=== PATIENT | female | born 1995 | race Caucasian/White ===

== ENCOUNTER → 2020-03-31 | Outpatient (CLI) | payer BC ==
--- NOTE | 2020-03-31 08:35 | US ---
EXAMINATION TYPE: US abdomen complete DATE OF EXAM: 03/31/2020 COMPARISON: NONE CLINICAL HISTORY: R10.11 ABD PAIN RUQ. [place] stool for 1-2 months. Nausea. EXAM MEASUREMENTS: Liver Length: 14.6 cm Gallbladder Wall: 0.3 cm CBD: 0.4 cm Spleen: 10.6 cm Right Kidney: 11.0 x 4.2 x 4.6 cm Left Kidney: 10.4 x 4.7 x 4.0 cm *Technical limitations due to large amount of overlying bowel content Pancreas: Obscured by bowel gas Liver: appears wnl Gallbladder: no evidence of stones Evidence for sonographic Deal's sign: no CBD: wnl Spleen: wnl Right Kidney: no evidence of hydronephrosis or mass Left Kidney: no evidence of hydronephrosis or mass Upper IVC: wnl Abd Aorta: wnl The liver is homogenous. The intrahepatic portion of the IVC and proximal abdominal aorta are within normal limits. There is no evidence of cholelithiasis. Common bile duct is unremarkable. Pancreas limited by bowel gas. The spleen is unremarkable. Kidneys are symmetric and free of hydronephrosis. No renal lesions are seen. IMPRESSION: 1. No acute process.
== END | disposition home or self-care (01) ==
LOC: RADUSWWP 07:56
PROVIDERS: ATTEND Internal Medicine
DX: R10.11 Right upper quadrant pain (principal)
CPT/HCPCS: 76700

== ENCOUNTER → 2022-01-04 | Outpatient (CLI) | payer BC ==
--- NOTE | 2022-01-05 18:40 | CT ---
EXAM: CT Head Without Intravenous Contrast CLINICAL HISTORY: ITS.REASON CT Reason: R42 dizziness TECHNIQUE: Axial computed tomography images of the head/brain without intravenous contrast. CTDI is 59.43 mGy and DLP is 1209.38 mGy-cm. This CT exam was performed using one or more of the following dose reduction techniques: automated exposure control, adjustment of the mA and/or kV according to patient size, and/or use of iterative reconstruction technique. COMPARISON: None FINDINGS: Brain: No acute infarct or hemorrhage. No extra-axial fluid collection. No mass effect or midline shift. Ventricles and sulci: Normal. No ventriculomegaly or intraventricular hemorrhage. Bones: Normal. No bony lesion or acute fracture. Subcutaneous tissues: Normal. Sinuses: Small polyp versus mucous retention cyst in the right maxillary sinus. Mastoid air cells: Normal. Orbits: Grossly unremarkable. IMPRESSION: No acute intracranial abnormality.
== END | disposition home or self-care (01) ==
LOC: RADCTMAIN 13:14
PROVIDERS: ATTEND Family Medicine
DX: R42 Dizziness and giddiness (principal)
CPT/HCPCS: 70450

== ENCOUNTER → 2022-01-04 | Outpatient (CLI) | payer BC ==
[2022-01-05 06:32] LABS: Creatine Kinase MB <0.2 ng/mL (0.0-2.4); Troponin I <0.012 ng/mL (0.000-0.034)
== END | disposition home or self-care (01) ==
LOC: LABWHC1 21:03
PROVIDERS: ATTEND Nurse Practitioner Adult Health
DX: R94.31 Abnormal electrocardiogram [ECG] [EKG] (principal)
CPT/HCPCS: 36415; 82553; 84484; 85379; 85652; 86140

== ENCOUNTER 2022-01-06 03:56 | Emergency (ER) | payer BC ==
[2022-01-06 04:08] VITALS: BP 125/83; PULSE 110; RESP 20; TEMP 98.2
--- NOTE | 2022-01-06 04:18 | ED ---
Recheck HPI - General Chief Complaint: Recheck/Abnormal Lab/Rx Stated Complaint: dizziness, pain everywhere Time Seen by Provider: 01/06/22 04:16 Source: patient, RN notes reviewed, old records reviewed Mode of arrival: ambulatory Limitations: no limitations - History of Present Illness Initial Comments: This is a 26-year-old female DF for evaluation. Patient Dese for evaluation regarding anxiety bodyaches and pains recently on his long steroid taper for treatment of vertigo. Patient has had vertigo in the past and vertigo is from persistent now for 2-3 weeks. No headaches. She was also been treated for an ear infection., Antibiotics Complaint: other (Persistent vertiginous symptoms) -: week(s) Returns Today for: persistent/worsening pain related to initial visit (Current bodyaches and pains) Symptoms Since Prior Visit: worsening pain Associated Symptoms: none Treatments Prior to Arrival: Given Antibiotics on, other (Patient is been on steroids for 2 weeks with Taper) - Related Data Previous Rx's Medication Instructions Recorded Meclizine [Antivert] 25 mg PO TID #15 tab 01/06/22 Ondansetron Odt [Zofran ODT] 4 mg PO Q8HR PRN #10 tab 01/06/22 Allergies Allergy/AdvReac Type Severity Reaction Status Date / Time shellfish derived [Shellfish] Allergy Wheezing Verified 01/06/22 04:08 Review of Systems ROS Statement: Those systems with pertinent positive or pertinent negative responses have been documented in the HPI. ROS Other: All systems not noted in ROS Statement are negative. Past Medical History Past Medical History: No Reported History History of Any Multi-Drug Resistant Organisms: None Reported Past Surgical History: No Surgical Hx Reported Past Psychological History: No Psychological Hx Reported Smoking Status: Never smoker Past Alcohol Use History: None Reported Past Drug Use History: None Reported General Exam Limitations: no limitations General appearance: alert, in no apparent distress, anxious Head exam: Present: atraumatic, normocephalic, normal inspection Eye exam: Present: normal appearance, PERRL, EOMI. Absent: scleral icterus, conjunctival injection, periorbital swelling ENT exam: Present: normal exam, mucous membranes moist Neck exam: Present: normal inspection. Absent: tenderness, meningismus, lymphadenopathy Respiratory exam: Present: normal lung sounds bilaterally. Absent: respiratory distress, wheezes, rales, rhonchi, stridor Cardiovascular Exam: Present: normal rhythm, tachycardia, normal heart sounds. Absent: systolic murmur, diastolic murmur, rubs, gallop, clicks GI/Abdominal exam: Present: soft, normal bowel sounds. Absent: distended, tenderness, guarding, rebound, rigid Extremities exam: Present: normal inspection, full ROM, normal capillary refill. Absent: tenderness, pedal edema, joint swelling, calf tenderness Back exam: Present: normal inspection Neurological exam: Present: alert, oriented X3, CN II-XII intact Psychiatric exam: Present: normal affect, normal mood Skin exam: Present: warm, dry, intact, normal color. Absent: rash Course Vital Signs 01/06/22 04:05 Temperature 98.2 F Pulse Rate 110 H Respiratory 20 Rate Blood Pressure 125/83 O2 Sat by Pulse 97 Oximetry - Reevaluation(s) Reevaluation #1: 01/06/22 04:58 Record is reviewed Reevaluation #2: 01/06/22 04:58 Patient symptoms improved Reevaluation #3: 01/06/22 04:58 Patient informed of results and plans and questions answered Medical Decision Making - Medical Decision Making 46 female presents today for evaluation of persistent vertiginous symptoms. Going on like 2 weeks difficulty sleeping and now bodyaches and pains. Patient will be given symptomatic therapy. Follow-up with ENT Disposition Clinical Impression: BPPV (benign paroxysmal positional vertigo), Vertigo Disposition: HOME SELF-CARE Condition: Good Prescriptions: Meclizine [Antivert] 25 mg PO TID #15 tab Ondansetron Odt [Zofran ODT] 4 mg PO Q8HR PRN #10 tab PRN Reason: nausea/vomiting Is patient prescribed a controlled substance at d/c from ED?: No Referrals: Sarah Cadet NPC [Primary Care Provider] - 1-2 days Ronan Cooper MD [STAFF PHYSICIAN] - 1-2 days Jack Yoo DO [Doctor of Osteopathic Medicine] - 1-2 days Time of Disposition: 05:00
[2022-01-06] MEDS ORDERED: ONDANSETRON ODT 4 MG TAB PO STA (04:55)
[2022-01-06] MEDS ORDERED: KETOROLAC 15 MG/ML 1 ML VIAL IM STA (04:55)
[2022-01-06] MEDS ORDERED: MECLIZINE 12.5 MG TAB PO STA (04:55)
== END 2022-01-06 05:15 | disposition home or self-care (01) ==
LOC: SUPCPDRO 03:56 → EC 03:56
DX: H81.10 Benign paroxysmal vertigo, unspecified ear (principal); Z91.013 Allergy to seafood
CPT/HCPCS: 99283; 96372; J1885

== ENCOUNTER → 2022-02-02 | Outpatient (CLI) | payer BC ==
--- NOTE | 2022-02-02 15:36 | MR ---
EXAMINATION TYPE: MR brain and iac wo/w con DATE OF EXAM: 02/02/2022 COMPARISON: CT brain January 04, 2022. HISTORY: Benign paroxysmal vertigo TECHNIQUE: Multiplanar, multisequence images of the brain and brainstem is performed without and with IV contras t, utilizing 11 mL intravenous Gadavist . Acoustic nerve disorder protocol. FINDINGS: Diffusion weighted images demonstrate no evidence of a recent infarct or other diffusion ab normality. There is no extra-axial fluid collection or significant white matter signal abnormality. The ventricular system and cisternal spaces are normal in size and appearance. The brain volume is age appropriate. Midline structures demonstrate normal morphology. The craniocervical junction appears within normal limits. Post contrast images demonstrate no abnormal enhancement. The dural venous sinuses appear pa tent. The visualized sinuses are clear and the globes are intact. Some patchy increased fluid signal in the inferior left petrous apex is present. The vestibulocochlea r complexes are symmetric and felt within normal limits. There is no suspicious enhancing cerebellopo ntine angle mass identified bilaterally. IMPRESSION: Possible mild left-sided petrous apicitis otherwise unremarkable study.
== END | disposition home or self-care (01) ==
LOC: RADMRIMAIN 07:08
PROVIDERS: ATTEND Family Medicine
DX: H81.13 Benign paroxysmal vertigo, bilateral (principal)
CPT/HCPCS: 70553; A9585

== ENCOUNTER 2022-08-20 08:00 | Emergency (ER) | payer BC ==
[2022-08-20 08:06] VITALS: TEMP 98
--- NOTE | 2022-08-20 08:33 | ED ---
General Adult HPI - General Chief complaint: Shortness of Breath Stated complaint: L side pain Time Seen by Provider: 08/20/22 08:07 Source: patient Mode of arrival: ambulatory Limitations: no limitations - History of Present Illness Initial comments: Dictation was produced using [employer] dictation software. please excuse any grammatical, word or spelling errors. Chief Complaint: 26-year-old female presents emergency Department with left- sided pleuritic chest pain History of Present Illness: 26-year-old female presents emergency Department with 2 days of left-sided pleuritic chest pain. She states that should she feel short of breath. No history of blood clots. No calf pain or calf tenderness. Patient does not take any oral contraceptive pills. No recent travel or long car rides. Patient denies any medical problems. She did recover from a mild cold recently. She is had very light coughing. Patient is reproduced with deep inspiration. Not reproduced with truncal rotation. No nausea vomiting. She reports that the pain feels like it's under her left lower ribs The ROS documented in this emergency department record has been reviewed and confirmed by me. Those systems with pertinent positive or negative responses have been documented in the HPI. All other systems are other negative and/or noncontributory. - Related Data Previous Rx's Medication Instructions Recorded Meclizine [Antivert] 25 mg PO TID #15 tab 01/06/22 Ondansetron Odt [Zofran ODT] 4 mg PO Q8HR PRN #10 tab 01/06/22 Allergies Allergy/AdvReac Type Severity Reaction Status Date / Time shellfish derived [Shellfish] Allergy Wheezing Verified 08/20/22 08:06 Review of Systems ROS Statement: Those systems with pertinent positive or pertinent negative responses have been documented in the HPI. ROS Other: All systems not noted in ROS Statement are negative. Past Medical History Past Medical History: No Reported History History of Any Multi-Drug Resistant Organisms: None Reported Past Surgical History: No Surgical Hx Reported Past Psychological History: No Psychological Hx Reported Smoking Status: Never smoker Past Alcohol Use History: None Reported Past Drug Use History: None Reported General Exam - General Exam Comments Initial Comments: PHYSICAL EXAM: General Impression: Alert and oriented x3, not in acute distress HEENT: Normocephalic atraumatic, extra-ocular movements intact, pupils equal and reactive to light bilaterally, mucous membranes moist. Cardiovascular: Heart regular rate and rhythm Chest: Able to complete full sentences, no retractions, no tachypnea Abdomen: abdomen soft, non-tender, non-distended, no organomegaly Musculoskeletal: Pulses present and equal in all extremities, no peripheral edema Motor: no focal deficits noted Neurological: CN II-XII grossly intact, no focal motor or sensory deficits noted Skin: Intact with no visualized rashes Psych: Normal affect and mood Limitations: no limitations Course Vital Signs 08/20/22 08:03 Temperature 98 F Pulse Rate 100 Respiratory 18 Rate Blood Pressure 130/72 O2 Sat by Pulse 100 Oximetry EKG Findings - EKG Comments: EKG Findings:: My EKG interpretation: Ventricular rate 91, sinus rhythm,. Interval 150, QRS 11, QTC 394. No IN prolongation, no QTC prolongation, no ST or T-wave changes noted. Overall, this EKG is unremarkable Medical Decision Making - Medical Decision Making Was pt. sent in by a medical professional or institution (, PA, BIOINFORMATICS SUPPORT SPECIALIST, urgent care, hospital, or [facility]...) When possible be specific @ -No Did you speak to anyone other than the patient for history (EMS, parent, family, police, friend...)? What history was obtained from this source @ -No Did you review nursing and triage notes (agree or disagree)? Why? @ -I reviewed and agree with nursing and triage notes Were old charts reviewed (outside hosp., previous admission, EMS record, old EKG, old radiological studies, urgent care reports/EKG's, [facility] records)? Report findings @ -No old charts were reviewed Differential Diagnosis (chest pain, altered mental status, abdominal pain women, abdominal pain men, vaginal bleeding, musculoskeletal, weakness, fever, dyspnea, syncope, headache, dizziness, GI bleed, back pain, seizure, CVA, palpatations, mental health)? @ -Differential Chest Pain: Stable Angina, Unstable Angina, STEMI, NSTEMI Aortic Dissection, Pneumothorax, Musculoskeletal, Esophageal Spasm GERD, Cholecystitis, Pancreatitis, Zoster, this is not meant to be an all-inclusive list. EKG interpreted by me (3pts min.). @ -As above X-rays interpreted by me (1pt min.). @ -Nonacute CT interpreted by me (1pt min.). @ -None done U/S interpreted by me (1pt. min.). @ -None done What testing was considered but not performed or refused? (CT, X-rays, U/S, labs)? Why? @ -None What meds were considered but not given or refused? Why? @ -None Did you discuss the management of the patient with other professionals (professionals i.e. , PA, BIOINFORMATICS SUPPORT SPECIALIST, lab, RT, psych nurse, transition social worker, forensic materials engineer, teacher, sustainability officer, hospice case manager)? Give summary @ -No Was smoking cessation discussed for >3mins.? @ -No Was critical care preformed (if so, how long)? @ -No Were there social determinants of health that impacted care today? How? (Ho melessness, low income, unemployed, alcoholism, drug addiction, transportation, low edu. Level, literacy, decrease access to med. care, [facility], rehab)? @ -No Was there de-escalation of care discussed even if they declined (Discuss DNR or withdrawal of care, Hospice)? DNR status @ -No What co-morbidities impacted this encounter? (DM, HTN, Smoking, COPD, CAD, Cancer, CVA, ARF, Chemo, Hep., AIDS, mental health diagnosis, sleep apnea, morbid obesity)? @ -None Was patient admitted / discharged? Hospital course, mention meds given and route, prescriptions, significant lab abnormalities, going to OR and other pertinent info. @ -26 Year-old female presents with acute pleurisy. The fracture includes pulmonary embolism. Patient S1 every 3 T3 pattern or EKG. D-dimer is unremarkable. Rest of labs are negative. Patient reevaluated at bedside fungus stable condition. She'll be discharged advised follow-up with primary doctor. Undiagnosed new problem with uncertain prognosis? @ -No Drug Therapy requiring intensive monitoring for toxicity (Heparin, Nitro, Insulin, Cardizem)? @ -No Were any procedures done? @ -No Diagnosis/symptom? Acute, or Chronic, or Acute on Chronic? Uncomplicated (without systemic symptoms) or Complicated (systemic symptoms)? @ -1.Acute pleurisy, no high-risk features Side effects of treatment? @ -No Exacerbation, Progression, or Severe Exacerbation? @ -No Poses a threat to life or bodily function? How? (Chest pain, [place], [place], pneumonia, PE, COPD, DKA, ARF, appy, cholecystitis, CVA, Diverticulitis, Homicidal, Suicidal, threat to staff... and all critical care pts) @ -No - Lab Data Result diagrams: 08/20/22 08:44 08/20/22 08:44 Lab Results 08/20/22 08/20/22 08/20/22 Range/Units 08:44 08:44 08:44 WBC 10.1 (3.8-10.6) k/uL RBC 4.36 (3.80-5.40) m/uL Hgb 13.0 (11.4-16.0) gm/dL Hct 38.5 (34.0-46.0) % MCV 88.3 (80.0-100.0) fL MCH 29.8 (25.0-35.0) pg MCHC 33.8 (31.0-37.0) g/dL RDW 14.3 (11.5-15.5) % Plt Count 318 (150-450) k/uL MPV 7.3 Neutrophils % 68 % Lymphocytes % 21 % Monocytes % 6 % Eosinophils % 2 % Basophils % 1 % Neutrophils # 6.9 (1.3-7.7) k/uL Lymphocytes # 2.2 (1.0-4.8) k/uL Monocytes # 0.6 (0-1.0) k/uL Eosinophils # 0.2 (0-0.7) k/uL Basophils # 0.1 (0-0.2) k/uL PT 9.6 (9.0-12.0) sec INR 0.9 (<1.2) APTT 25.2 (22.0-30.0) sec D-Dimer 0.48 (<0.60) mg/L FEU Sodium 137 (137-145) mmol/L Potassium 4.1 (3.5-5.1) mmol/L Chloride 103 (98-107) mmol/L Carbon Dioxide 26 (22-30) mmol/L Anion Gap 8 mmol/L BUN 12 (7-17) mg/dL Creatinine 0.69 (0.52-1.04) mg/dL Est GFR (CKD-EPI)AfAm >90 (>60 ml/min/1.73 sqM) Est GFR (CKD-EPI)NonAf >90 (>60 ml/min/1.73 sqM) Glucose 91 (74-99) mg/dL Calcium 9.1 (8.4-10.2) mg/dL Troponin I (0.000-0.034) ng/mL 08/20/22 Range/Units 08:44 WBC (3.8-10.6) k/uL RBC (3.80-5.40) m/uL Hgb (11.4-16.0) gm/dL Hct (34.0-46.0) % MCV (80.0-100.0) fL MCH (25.0-35.0) pg MCHC (31.0-37.0) g/dL RDW (11.5-15.5) % Plt Count (150-450) k/uL MPV Neutrophils % % Lymphocytes % % Monocytes % % Eosinophils % % Basophils % % Neutrophils # (1.3-7.7) k/uL Lymphocytes # (1.0-4.8) k/uL Monocytes # (0-1.0) k/uL Eosinophils # (0-0.7) k/uL Basophils # (0-0.2) k/uL PT (9.0-12.0) sec INR (<1.2) APTT (22.0-30.0) sec D-Dimer (<0.60) mg/L FEU Sodium (137-145) mmol/L Potassium (3.5-5.1) mmol/L Chloride (98-107) mmol/L Carbon Dioxide (22-30) mmol/L Anion Gap mmol/L BUN (7-17) mg/dL Creatinine (0.52-1.04) mg/dL Est GFR (CKD-EPI)AfAm (>60 ml/min/1.73 sqM) Est GFR (CKD-EPI)NonAf (>60 ml/min/1.73 sqM) Glucose (74-99) mg/dL Calcium (8.4-10.2) mg/dL Troponin I <0.012 (0.000-0.034) ng/mL Disposition Clinical Impression: Pleurisy Disposition: HOME SELF-CARE Condition: Good Instructions (If sedation given, give patient instructions): Pleurisy (ED) Is patient prescribed a controlled substance at d/c from ED?: No Referrals: Eduardo Allan MD [Primary Care Provider] - 1-2 days Time of Disposition: 09:44
[2022-08-20 08:53] LABS: Basophils # (A) 0.1 k/uL (0-0.2); Basophils % (A) 1 %; Eosinophils # (A) 0.2 k/uL (0-0.7); Eosinophils % (A) 2 %; HCT 38.5 % (34.0-46.0); Lymphocytes # (A) 2.2 k/uL (1.0-4.8); Lymphocytes % (A) 21 %; MCH 29.8 pg (25.0-35.0); MCHC 33.8 g/dL (31.0-37.0); MCV 88.3 fL (80.0-100.0); Mean Platelet Volume 7.3; Monocytes # (A) 0.6 k/uL (0-1.0); Monocytes % (A) 6 %; Neutrophils # (A) 6.9 k/uL (1.3-7.7); Neutrophils % (A) 68 %; Platelet Count 318 k/uL (150-450); RBC 4.36 m/uL (3.80-5.40); RDW 14.3 % (11.5-15.5); WBC 10.1 k/uL (3.8-10.6)
--- NOTE | 2022-08-20 08:59 | XR ---
EXAMINATION TYPE: XR chest 2V DATE OF EXAM: 08/20/2022 COMPARISON: NONE HISTORY: Chest pain TECHNIQUE: Frontal and lateral views of the chest are obtained. FINDINGS: There is no focal air space opacity. No evidence for pneumothorax. No pleural effusion. The cardiac silhouette size is within normal limits. The osseous structures are grossly intact. IMPRESSION: 1. No acute cardiopulmonary process.
[2022-08-20 09:08] LABS: African American GFR (CKD) >90 (>60 ml/min/1.73 sqM); Anion Gap 8 mmol/L; Blood Urea Nitrogen 12 mg/dL (7-17); Calcium 9.1 mg/dL (8.4-10.2); Carbon Dioxide 26 mmol/L (22-30); Chloride 103 mmol/L (98-107); Glucose 91 mg/dL (74-99); INR 0.9 (<1.2); Non-African American GFR(CKD) >90 (>60 ml/min/1.73 sqM); Partial Thromboplastin Time 25.2 sec (22.0-30.0); Potassium 4.1 mmol/L (3.5-5.1); Prothrombin Time 9.6 sec (9.0-12.0); Sodium 137 mmol/L (137-145)
[2022-08-20 10:38] VITALS: BP 121/75; PULSE 88; RESP 20
== END 2022-08-20 10:38 | disposition home or self-care (01) ==
LOC: EC 08:00
DX: R09.1 Pleurisy (principal); Z91.013 Allergy to seafood
CPT/HCPCS: 36415; 71046; 80048; 84484; 85025; 85379; 85610; 85730; 93005; 99285

== ENCOUNTER 2023-02-20 08:04 | Day surgery (SDC) | payer BC ==
[2023-02-15 16:01] VITALS: BMI 40.7
[~2023-02-20 08:04] MED LIST: ACETAMINOPHEN TAB 500 MG TAB PO PRN; HEPARIN SODIUM,PORCINE/PF 5,000 UNIT/0.5 ML SYRINGE SQ PRN; Pre Op ABX Message 1 EACH MISC MISCELLANE ONE
[2023-02-20] MEDS ORDERED: HYDROmorphone 0.5 MG/0.5 ML SYRINGE IVP PRN (08:17)
[2023-02-20] MEDS ORDERED: ONDANSETRON 4 MG/2 ML VIAL IVP ONE ×2 (08:17→11:29)
[2023-02-20] MEDS ORDERED: DEXAMETHASONE SOD PHOSPHATE 4 MG/ML 1 ML VIAL IV ONE (08:17)
[2023-02-20] MEDS ORDERED: LACTATED RINGERS 1,000 ML IV SCH (08:17)
[2023-02-20] MEDS ORDERED: LIDOCAINE 1% (10MG/ML) FOR IV START INTRADERMA PRN (08:17)
[2023-02-20] MEDS ORDERED: MIDAZOLAM 2 MG/2 ML VIAL IV PRN (08:17)
--- NOTE | 2023-02-20 08:28 | P.GSHP ---
History of Present Illness H&P Date: 02/20/23 Chief Complaint: Hemorrhoids 27-year-old female seen in the office 2 months ago. Patient with complaints of hemorrhoids. Mostly in the posterior midline. Pain and swelling noticed. Past Medical History Past Medical History: No Reported History History of Any Multi-Drug Resistant Organisms: None Reported Past Surgical History: No Surgical Hx Reported Past Anesthesia/Blood Transfusion Reactions: No Reported Reaction Additional Past Anesthesia/Blood Transfusion Reaction / Comment(s): Has never had anesthesia. Past Psychological History: No Psychological Hx Reported Smoking Status: Never smoker Past Alcohol Use History: None Reported Past Drug Use History: None Reported - Past Family History Mother Family Medical History: No Reported History Medications and Allergies Home Medications Medication Instructions Recorded Confirmed Type Multivitamins, Thera [Multivitamin 1 tab PO DAILY 02/15/23 02/20/23 History (formulary)] Allergies Allergy/AdvReac Type Severity Reaction Status Date / Time shellfish derived [Shellfish] Allergy Wheezing Verified 02/20/23 08:21 Surgical - Exam Vital Signs Temp Pulse Resp BP Pulse Ox 98 F 102 H 16 130/84 97 02/20/23 08:24 02/20/23 08:24 02/20/23 08:24 02/20/23 08:24 02/20/23 08:24 Physical exam: General: Well-developed, well-nourished HEENT: Normocephalic, sclerae nonicteric Abdomen: Nontender, nondistended Extremities: No edema Neuro: Alert and oriented Assessment and Plan (1) Hemorrhoid Narrative/Plan: 27-year-old female with symptomatic hemorrhoids. We'll proceed with hemorrhoidectomy involving external and internal hemorrhoids posterior midline, may remove anterior skin tags as well. Risks of bleeding, infection, scarring, numbness, recurrence, stricture, incontinence, fistula. Patient understands and wishes to proceed. Current Visit: Yes Status: Acute Code(s): K64.9 - UNSPECIFIED HEMORRHOIDS SNOMED Code(s): 03994194
[2023-02-20] MEDS ORDERED: MIDAZOLAM 2 MG/2 ML VIAL ONE (09:35)
[2023-02-20] MEDS ORDERED: GLYCOPYRROLATE 0.2 MG/ML 2 ML VIAL ONE (09:35)
[2023-02-20] MEDS ORDERED: PROPOFOL 10 MG/ML 20 ML VIAL IV ONE (09:35)
[2023-02-20] MEDS ORDERED: ONDANSETRON 4 MG/2 ML VIAL ONE ×2 (09:35→11:33)
[2023-02-20] MEDS ORDERED: KETOROLAC 15 MG/ML 1 ML VIAL ONE (09:35)
[2023-02-20] MEDS ORDERED: fentaNYL (PF) 50 MCG/ML 2 ML AMP ONE (09:35)
[2023-02-20] MEDS ORDERED: LIDOCAINE 1% INJ 10MG/ML (20 ML MDV) ONE (09:35)
[2023-02-20] MEDS ORDERED: SUCCINYLCHOLINE CHLORIDE 200 MG/10 ML VIAL IV ONE (09:35)
[2023-02-20] MEDS ORDERED: ROCURONIUM 10 MG/ML (5 ML VIAL) IV ONE (09:35)
[2023-02-20] MEDS ORDERED: NEOSTIGMINE 1 MG/ML 10 ML VIAL ONE (09:35)
[2023-02-20] MEDS ORDERED: BUPIVACAINE (PF) 0.25% 30 ML VIAL SQ ONE ×2 (09:39→09:57)
[2023-02-20] MEDS ORDERED: GELATIN SPONGE,ABSORB (LARGE) 1 EACH SPONGE TOPICAL ONE (10:12)
[2023-02-20] MEDS ORDERED: NALOXONE 0.4 MG/ML 1 ML VIAL IV PRN (10:37)
[2023-02-20 10:45] VITALS: TEMP 98.3
--- NOTE | 2023-02-20 10:48 | P.OP ---
Date of Procedure: 02/20/23 Procedure(s) Performed: PREOPERATIVE DIAGNOSIS: Symptomatic hemorrhoids POSTOPERATIVE DIAGNOSIS: Same PROCEDURE: Excision internal/external hemorrhoid posterior midline, excision anterior anal skin tag SURGEON: Brian EBL: Jayme Ybarra ANESTHESIA: Gen. COMPLICATIONS: None OPERATIVE PROCEDURE: Patient placed in the prone jackknife position. The perianal tissues prepped and draped sterilely. A rectal retractor was utilized. The patient had a prominent hemorrhoid and adjacent skin tag posterior midline. No fissure or evidence of previous fissure was seen. No evidence of fistula was noted. A 3-0 chromic stitch was placed at the apex of the hemorrhoidal vein. The external skin tag and internal/external hemorrhoid was then excised with both cautery and the harmonic scissors. The defect was closed using a running 3-0 chromic stitch. The anterior skin tag was excised sharply. This was closed using 2 separate 3-0 Vicryl sutures. Specimens were sent to pathology. Gelfoam was placed within the rectum. Sterile outer dressings applied. DISPOSITION: Stable to recovery room
[2023-02-20 11:43] VITALS: BP 102/68; PULSE 74; RESP 18
== END 2023-02-20 12:01 | disposition home or self-care (01) ==
LOC: OR 08:04
PROVIDERS: ATTEND Surgery
DX: K64.4 Residual hemorrhoidal skin tags (principal); K64.8 Other hemorrhoids; Z79.899 Other long term (current) drug therapy; Z91.013 Allergy to seafood
CPT/HCPCS: 46255; 81025; 88304; J2250; J0330; J1100; J2710; J2405; J2001; J3010; J1885; J2704; J1170; J1644; J0665

== ENCOUNTER 2023-03-11 08:04 | Emergency (ER) | payer BC ==
[2023-03-11 08:35] VITALS: RESP 18; TEMP 98.7
[2023-03-11] MEDS ORDERED: KETOROLAC 15 MG/ML 1 ML VIAL IVP STA (08:37)
[2023-03-11] MEDS ORDERED: MORPHINE SULFATE 2 MG/ML SYRINGE IVP STA ×2 (08:37→12:09)
[2023-03-11] MEDS ORDERED: SODIUM CHLORIDE 0.9% 1,000 ML IV STA (08:37)
[2023-03-11 08:58] LABS: Basophils # (A) 0.1 k/uL (0-0.2); Basophils % (A) 0 %; Eosinophils # (A) 0.3 k/uL (0-0.7); Eosinophils % (A) 3 %; HCT 38.5 % (34.0-46.0); HGB 13.1 gm/dL (11.4-16.0); Lymphocytes # (A) 2.4 k/uL (1.0-4.8); Lymphocytes % (A) 21 %; MCH 29.6 pg (25.0-35.0); MCHC 34.1 g/dL (31.0-37.0); MCV 86.8 fL (80.0-100.0); Mean Platelet Volume 7.5; Monocytes # (A) 0.6 k/uL (0-1.0); Monocytes % (A) 6 %; Neutrophils # (A) 8.1 k/uL (1.3-7.7); Neutrophils % (A) 69 %; Platelet Count 308 k/uL (150-450); RBC 4.44 m/uL (3.80-5.40); RDW 14.3 % (11.5-15.5); WBC 11.8 k/uL (3.8-10.6)
[2023-03-11 09:17] LABS: ALT 25 U/L (4-34); AST 25 U/L (14-36); African American GFR (CKD) >90 (>60 ml/min/1.73 sqM); Albumin 4.1 g/dL (3.5-5.0); Alkaline Phosphatase 74 U/L (38-126); Anion Gap 13 mmol/L; Blood Urea Nitrogen 11 mg/dL (7-17); Calcium 9.2 mg/dL (8.4-10.2); Carbon Dioxide 22 mmol/L (22-30); Chloride 103 mmol/L (98-107); Glucose 121 mg/dL (74-99); HCG,Qualitative Serum Not Detected; Non-African American GFR(CKD) >90 (>60 ml/min/1.73 sqM); Potassium 3.9 mmol/L (3.5-5.1); Sodium 138 mmol/L (137-145); Total Bilirubin 0.3 mg/dL (0.2-1.3); Total Protein 6.7 g/dL (6.3-8.2)
--- NOTE | 2023-03-11 09:18 | ED ---
Abdominal Pain HPI - General Chief Complaint: Abdominal Pain Stated Complaint: Abd Pain Time Seen by Provider: 03/11/23 08:25 Source: patient, RN notes reviewed Mode of arrival: ambulatory Limitations: no limitations - History of Present Illness Initial Comments: This is a 27 year old female who presents to the emergency department for abdominal pain. States that she went to urinate this morning, and shortly afterwards developed sharp pain to the RLQ and suprapubic area. Denies any nausea/vomiting. Also denies any hx of similar symptoms in the past. She is on her period, however she states that this feels very different than period cramping. She took 1g of Tylenol this morning with no relief in symptoms. MD Complaint: abdominal pain - Related Data Home Medications Medication Instructions Recorded Confirmed Multivitamins, Thera [Multivitamin 1 tab PO DAILY 02/15/23 02/20/23 (formulary)] Previous Rx's Medication Instructions Recorded oxyCODONE HCL [OxyIR] 5 mg PO Q6H PRN 3 Days #6 tab 02/20/23 HYDROcodone/APAP 5-325MG [[place] 1 tab PO Q6HR PRN 3 Days #12 tab 03/11/23 5-325] Ketorolac [Toradol] 10 mg PO Q6HR PRN #15 tab 03/11/23 Allergies Allergy/AdvReac Type Severity Reaction Status Date / Time shellfish derived [Shellfish] Allergy Wheezing Verified 03/11/23 08:20 Review of Systems ROS Statement: Those systems with pertinent positive or pertinent negative responses have been documented in the HPI. ROS Other: All systems not noted in ROS Statement are negative. Past Medical History Past Medical History: No Reported History History of Any Multi-Drug Resistant Organisms: None Reported Past Surgical History: No Surgical Hx Reported Past Anesthesia/Blood Transfusion Reactions: No Reported Reaction Additional Past Anesthesia/Blood Transfusion Reaction / Comment(s): Has never had anesthesia. Past Psychological History: No Psychological Hx Reported Smoking Status: Never smoker Past Alcohol Use History: None Reported Past Drug Use History: None Reported - Past Family History Mother Family Medical History: No Reported History General Exam Limitations: no limitations General appearance: alert, in distress Head exam: Present: atraumatic, normocephalic, normal inspection Respiratory exam: Present: normal lung sounds bilaterally. Absent: respiratory distress, wheezes, rales, rhonchi, stridor Cardiovascular Exam: Present: regular rate, normal rhythm, normal heart sounds. Absent: systolic murmur, diastolic murmur, rubs, gallop, clicks GI/Abdominal exam: Present: soft, tenderness (RLQ), normal bowel sounds. Absent: distended Neurological exam: Present: alert, oriented X3, CN II-XII intact Psychiatric exam: Present: normal affect, normal mood Skin exam: Present: warm, dry, intact, normal color. Absent: rash Course Vital Signs 03/11/23 03/11/23 03/11/23 08:18 09:17 10:11 Temperature 98.7 F Pulse Rate 104 H 76 76 Respiratory 18 18 18 Rate Blood Pressure 112/71 111/63 112/66 O2 Sat by Pulse 100 99 99 Oximetry 03/11/23 03/11/23 03/11/23 12:46 13:10 14:58 Temperature Pulse Rate 82 74 78 Respiratory 18 18 18 Rate Blood Pressure 105/63 114/78 126/74 O2 Sat by Pulse 98 99 99 Oximetry Medical Decision Making - Medical Decision Making This is a 27-year-old female who presents to the emergency department for abdominal pain. Was pt. sent in by a medical professional or institution? @ -No Did you speak to anyone other than the patient for history? @ -No Did you review nursing and triage notes? @ -Yes, and I agree, it is accurate with regards to the patient's symptoms. Were old charts reviewed? @ -No Differential Diagnosis? @ -Differential Abdominal Pain Women: Appendicitis, Cholecystitis, diverticulosis, ischemic bowel, pancreatitis, hepatitis, UTI, gastroenteritis, AAA, incarcerated hernia, bowel obstruction, constipation, inflammatory bowel, hepatitis, peptic ulcer disease, splenic infarction, perforated viscus, vulvitis, ovarian torsion, PID, kidney stone, placenta abruption, this is not meant to be an all-inclusive list EKG interpreted by me (3pts min.)? @ -Not obtained X-rays interpreted by me (1pt min.)? @ -Not obtained CT interpreted by me (1pt min.)? @ -CT scan of the abdomen and pelvis obtained. My interpretation identifies no dilation of the appendix. U/S interpreted by me (1pt. min.)? @ -Not obtained What testing was considered but not performed? (CT, X-rays, U/S, labs)? Why? @ -None What meds were considered but not given? Why? @ -None Did you discuss the management of the patient with other professionals? @ -Yes, Dr. Greco, who advised that based on the current workup and description of her symptoms, this may be related to a ruptured ovarian cyst. She advised that because the symptoms have started to improve, she can be discharged home with follow-up on an outpatient basis, however if she seems to get worse again, they can also consider observation overnight. Did you reconcile home meds? @ -No Was smoking cessation discussed for >3mins.? @ -No Was critical care preformed (if so, how long)? @ -No Were there social determinants of health that impacted care today? How? (Homelessness, low income, unemployed, alcoholism, drug addiction, transportation, low edu. Level, literacy, decrease access to med. care, fci, rehab)? @ -No Was there de-escalation of care discussed even if they declined? (Discuss DNR or withdrawal of care, Hospice)? @ -No What co-morbidities impacted this encounter? (DM, HTN, Smoking, COPD, CAD, Cancer, CVA, Hep., AIDS, mental health diagnosis, sleep apnea, morbid obesity)? @ -None Was patient admitted / discharged? @ -Discharged. Lab work obtained revealing leukocytosis with a white blood cell count of 11.8. Lactic acid 3.0. Urinalysis reveals large amount of blood, consistent with the patient being on her period. We initially obtained a computed tomography scan of the abdomen and pelvis. This identified some free fluid/fat stranding changes in the right lower quadrant of unclear etiology. Appendix is within normal limits. 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 Pelvic ultrasound obtained, which again demonstrated the right ovarian teratoma, however evaluation of vascular flow was limited due to the teratoma. Case discussed with Dr. Greco, MOBILITY MANAGER, who advised that based on the size of the teratoma, her current labs, and because symptoms have improved, symptoms are likely unrelated to ovarian torsion or the teratoma and suggested that it may be due to a ruptured ovarian cyst. She advised that the patient could be discharged home with pain management and follow-up in the office on an outpatient basis or observed overnight with pain management. This was discussed with the patient, who advised that she does feel better with pain medication in the emergency department and felt stable for discharge home. She was given prescriptions for [place] and Toradol for symptomatic management. Advised taking the [place] sparingly when her pain is the most severe. She was given very strict return parameters and instructed to contact the MOBILITY MANAGER office first thing Monday morning for a follow-up appointment. Undiagnosed new problem with uncertain prognosis? @ -None Drug Therapy requiring intensive monitoring for toxicity (Heparin, Nitro, Insulin, Cardizem)? @ -None Were any procedures done? @ -None Diagnosis/symptom? @ -Right ovarian teratoma, RLQ pain, pelvic pain Acute, or Chronic, or Acute on Chronic? @ -Acute Uncomplicated (without systemic symptoms) or Complicated (systemic symptoms)? @ -Uncomplicated Side effects of treatment? @ -None Exacerbation, Progression, or Severe Exacerbation] @ -Not applicable Poses a threat to life or bodily function? @ -Unclear, this will depend on the cause of her symptoms Return precautions reviewed in depth, the patient is instructed to return to the emergency department with any new, worsening, or concerning symptoms. Patient verbalized understanding. This case was discussed in detail with the attending ED physician, Dr. Diop. Presentation, findings, and treatment plan discussed in detail as well. - Lab Data Result diagrams: 03/11/23 08:40 03/11/23 08:40 Lab Results 03/11/23 03/11/23 03/11/23 Range/Units 08:40 08:40 08:40 WBC 11.8 H (3.8-10.6) k/uL RBC 4.44 (3.80-5.40) m/uL Hgb 13.1 (11.4-16.0) gm/dL Hct 38.5 (34.0-46.0) % MCV 86.8 (80.0-100.0) fL MCH 29.6 (25.0-35.0) pg MCHC 34.1 (31.0-37.0) g/dL RDW 14.3 (11.5-15.5) % Plt Count 308 (150-450) k/uL MPV 7.5 Neutrophils % 69 % Lymphocytes % 21 % Monocytes % 6 % Eosinophils % 3 % Basophils % 0 % Neutrophils # 8.1 H (1.3-7.7) k/uL Lymphocytes # 2.4 (1.0-4.8) k/uL Monocytes # 0.6 (0-1.0) k/uL Eosinophils # 0.3 (0-0.7) k/uL Basophils # 0.1 (0-0.2) k/uL Sodium 138 (137-145) mmol/L Potassium 3.9 (3.5-5.1) mmol/L Chloride 103 (98-107) mmol/L Carbon Dioxide 22 (22-30) mmol/L Anion Gap 13 mmol/L BUN 11 (7-17) mg/dL Creatinine 0.79 (0.52-1.04) mg/dL Est GFR (CKD-EPI)AfAm >90 (>60 ml/min/1.73 sqM) Est GFR (CKD-EPI)NonAf >90 (>60 ml/min/1.73 sqM) Glucose 121 H (74-99) mg/dL Lactic Ac Sepsis Rflx Plasma Lactic Acid Franco (0.7-2.0) mmol/L Calcium 9.2 (8.4-10.2) mg/dL Total Bilirubin 0.3 (0.2-1.3) mg/dL AST 25 (14-36) U/L ALT 25 (4-34) U/L Alkaline Phosphatase 74 (38-126) U/L Total Protein 6.7 (6.3-8.2) g/dL Albumin 4.1 (3.5-5.0) g/dL HCG, Qual Not Detected Urine Color Colorless Urine Appearance Clear (Clear) Urine pH 6.0 (5.0-8.0) Ur Specific [place] 1.023 (1.001-1.035) Urine Protein Negative (Negative) Urine Glucose (UA) Negative (Negative) Urine Ketones Negative (Negative) Urine Blood Large H (Negative) Urine Nitrite Negative (Negative) Urine Bilirubin Negative (Negative) Urine Urobilinogen <2.0 (<2.0) mg/dL Ur Leukocyte Esterase Negative (Negative) Urine RBC 29 H (0-5) /hpf Urine WBC 2 (0-5) /hpf Ur Squamous Epith Cells <1 (0-4) /hpf 03/11/23 03/11/23 03/11/23 Range/Units 08:40 09:28 12:45 WBC (3.8-10.6) k/uL RBC (3.80-5.40) m/uL Hgb (11.4-16.0) gm/dL Hct (34.0-46.0) % MCV (80.0-100.0) fL MCH (25.0-35.0) pg MCHC (31.0-37.0) g/dL RDW (11.5-15.5) % Plt Count (150-450) k/uL MPV Neutrophils % % Lymphocytes % % Monocytes % % Eosinophils % % Basophils % % Neutrophils # (1.3-7.7) k/uL Lymphocytes # (1.0-4.8) k/uL Monocytes # (0-1.0) k/uL Eosinophils # (0-0.7) k/uL Basophils # (0-0.2) k/uL Sodium (137-145) mmol/L Potassium (3.5-5.1) mmol/L Chloride (98-107) mmol/L Carbon Dioxide (22-30) mmol/L Anion Gap mmol/L BUN (7-17) mg/dL Creatinine (0.52-1.04) mg/dL Est GFR (CKD-EPI)AfAm (>60 ml/min/1.73 sqM) Est GFR (CKD-EPI)NonAf (>60 ml/min/1.73 sqM) Glucose (74-99) mg/dL Lactic Ac Sepsis Rflx Y Plasma Lactic Acid Franco 3.0 H* 1.3 (0.7-2.0) mmol/L Calcium (8.4-10.2) mg/dL Total Bilirubin (0.2-1.3) mg/dL AST (14-36) U/L ALT (4-34) U/L Alkaline Phosphatase (38-126) U/L Total Protein (6.3-8.2) g/dL Albumin (3.5-5.0) g/dL HCG, Qual Urine Color Urine Appearance (Clear) Urine pH (5.0-8.0) Ur Specific [place] (1.001-1.035) Urine Protein (Negative) Urine Glucose (UA) (Negative) Urine Ketones (Negative) Urine Blood (Negative) Urine Nitrite (Negative) Urine Bilirubin (Negative) Urine Urobilinogen (<2.0) mg/dL Ur Leukocyte Esterase (Negative) Urine RBC (0-5) /hpf Urine WBC (0-5) /hpf Ur Squamous Epith Cells (0-4) /hpf - Radiology Data Radiology results: report reviewed, image reviewed Disposition Clinical Impression: Right lower quadrant abdominal pain, Pelvic pain, Teratoma of right ovary Disposition: HOME SELF-CARE Instructions (If sedation given, give patient instructions): Ovarian Cyst (ED), Pelvic Pain in Women (ED), Abdominal Pain (ED), Ruptured Ovarian Cyst (ED) Additional Instructions: Return to the emergency department with any new, worsening, or concerning sympt oms. Take the Toradol with Tylenol as needed for pain relief. If you choose to take the Toradol, do not take any other anti-inflammatories such as ibuprofen, take one or the other. Take the [place] sparingly when your pain is the most severe and be aware that it may make you drowsy. Contact Dr. Greco, MOBILITY MANAGER, first thing Monday morning. Let them know that you were seen in the emergency department and Dr. Greco requested you follow-up with them in the office for further evaluation of the pelvic pain and ovarian teratoma. Prescriptions: HYDROcodone/APAP 5-325MG [[place] 5-325] 1 tab PO Q6HR PRN 3 Days #12 tab PRN Reason: Pain Ketorolac [Toradol] 10 mg PO Q6HR PRN #15 tab PRN Reason: Pain Is patient prescribed a controlled substance at d/c from ED?: Yes When asked, does pt state using other controlled substances?: No If prescribed controlled substance>3 days was MAPS reviewed?: Prescribed <3 Days Referrals: Eduardo Allan MD [Primary Care Provider] - 1-2 days Erika Greco DO [Doctor of Osteopathic Medicine] - 1-2 days
--- NOTE | 2023-03-11 10:10 | CT ---
EXAMINATION TYPE: CT abdomen pelvis w con CT DLP: 1601.7 mGycm, Automated exposure control for dose reduction was used. DATE OF EXAM: 03/11/2023 9:51 AM COMPARISON: None CLINICAL INDICATION:Female, 27 years old with history of RLQ abdominal pain; RLQ pain x 2 hours TECHNIQUE: Axial CT of the ;CT abdomen pelvis w con;Sagittal and coronal reformats were created on a separate workstation. Contrast used:100 ml mL of Isovue 300 with IV Contrast, (none if empty) Oral contrast used: without Oral Contrast (none if empty) FINDINGS: LOWER CHEST: Unremarkable ABDOMEN LIVER: Unremarkable GALLBLADDER AND BILE DUCTS: Unremarkable. PANCREAS: Unremarkable. SPLEEN: Unremarkable. ADRENAL GLANDS: Unremarkable. KIDNEYS AND URETERS: No evidence of hydronephrosis or renal calculus. The ureters are unremarkable. PELVIS BLADDER: Unremarkable REPRODUCTIVE: Containing right ovarian lesion with calcifications measuring 37 x 30 mm. The left ovar y is enlarged for size measuring 64 x 43 mm. 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 ABDOMEN & PELVIS STOMACH AND BOWEL: No evidence of bowel obstruction. Moderate to large amount stool in the right colo n. PERITONEUM/RETROPERITONEUM: No evidence of pneumoperitoneum or free fluid. VASCULATURE: No evidence of aortic aneurysm. MUSCULOSKELETAL: No acute osseous abnormalities LYMPH NODES: No gross evidence for lymphadenopathy. Prominent lymph nodes in the right lower quadrant . SOFT TISSUE/ABDOMINAL WALL: Unremarkable IMPRESSION: 1. Some free fluid/fat stranding changes in the right lower quadrant . Etiology uncertain. The appen amarilys is visualized and within normal limits. There is no evidence of obstructive uropathy. 2. There is a moderate to large amount stool in the right colon. 3. Right ovarian teratoma measuring up to 35 mm. 4. Large left ovary is asymmetrically increase in size, correlate for signs and symptoms of left low er quadrant pain. Consider Doppler imaging of the left ovary for arterial and venous spectral wavefor ms.
--- NOTE | 2023-03-11 11:12 | US ---
EXAMINATION TYPE: US transvaginal DATE OF EXAM: 03/11/2023 COMPARISON: Same day CT CLINICAL INDICATION: Female, 27 years old with history of Pelvic pain, abnormal CT; Pelvic pain, abno rmal CT TECHNIQUE: Transvaginal (TV). Transvaginal sonographic images of the pelvis were acquired. Date of LMP: 03/10/2023 EXAM MEASUREMENTS: Uterus: 8.6 x 4.4 x 5.6 cm Endometrial Stripe: Right Horn=0.8 Left Horn= 1.1 cm Right Ovary: 5.0 x 3.2 x 4.3 cm Left Ovary: 6.9 x 4.9 x 5.4 cm 1. Uterus: Anteverted wnl 2. Endometrium: Possible bicornuate 3. Right Ovary: Echogenic lesion= 3.9 x 3.6 x 3.3 cm as visualized on CT with internal calcification teratoma 4. Left Ovary: Possible Solid lesion= 5.0 x 3.7 x 4.5 cm Spectral, color and waveform doppler imaging shows good arterial and venous flow within the left ov christian; there is no evidence for ovarian torsion./ Unable to obtain waveforms within right ovary due to shadowing from possible teratoma 5. Bilateral Adnexa: wnl 6. Posterior cul-de-sac: Small amount of free fluid present IMPRESSION: 1. Appropriate arterial and spectral venous waveforms to the left ovary. 2. Right ovarian teratoma redemonstrated which limits evaluation for vascular flow. 3. 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 Endometrium within normal limits for thickness.
[2023-03-11] MEDS ORDERED: HYDROcodone/APAP 5-325MG 1 EACH TAB PO STA (13:03)
[2023-03-11 13:13] LABS: Appearance,Urine Clear (Clear); Bilirubin,Urine Negative (Negative); Blood,Urine Large (Negative); Color,Urine Colorless; Glucose,Urine (UA) Negative (Negative); Ketones,Urine Negative (Negative); Leukocyte Esterase,Urine Negative (Negative); Nitrite,Urine Negative (Negative); Protein,Urine Negative (Negative); RBC,Urine 29 /hpf (0-5); Specific Gravity,Urine 1.023 (1.001-1.035); Squamous Epithelial Cell,Urine <1 /hpf (0-4); Urobilinogen,Urine <2.0 mg/dL (<2.0); WBC,Urine 2 /hpf (0-5)
[2023-03-11] MEDS ORDERED: ONDANSETRON 4 MG ODT STARTER PACK 2 TAB BTL PO STA (14:21)
[2023-03-11] MEDS ORDERED: ACET/COD 300 MG/30 MG STARTER PACK 6 TAB BTL PO STA (14:21)
[2023-03-11] MEDS ORDERED: IBUPROFEN 600 MG STARTER PACK 4 TAB BTL PO STA (14:21)
[2023-03-11 15:07] VITALS: BP 126/74; PULSE 78
== END 2023-03-11 14:59 | disposition home or self-care (01) ==
LOC: EC 08:04
DX: D27.0 Benign neoplasm of right ovary (principal); D72.829 Elevated white blood cell count, unspecified; Z91.013 Allergy to seafood
CPT/HCPCS: 99284; 96374; 96375; 96376; 96361; 36415; 80053; 83605; 85025; 81001; 84703; 93976; 76830; 74177; J2270; J1885; S0119; Q9967

== ENCOUNTER → 2023-10-04 | Outpatient (CLI) | payer BC ==
--- NOTE | 2023-10-04 09:50 | US ---
EXAMINATION TYPE: US abdomen complete DATE OF EXAM: 10/04/2023 COMPARISON: CT: 03/11/23, US: 03/31/20 CLINICAL INDICATION: Female, 27 years old with history of R10.11 RIGHT UPPER QUADRANT PAIN; Nausea, d iarrhea x 2 weeks. TECHNIQUE: Multiple sonographic images of the abdomen are obtained. FINDINGS: EXAM MEASUREMENTS: Liver Length: 14.5 cm Gallbladder Wall: 0.28 cm CBD: 0.4 cm Spleen: 11.9 cm Right Kidney: 11.5 x 5.4 x 4.7 cm Left Kidney: 10.9 x 5.6 x 5.4 cm TECHNICAL TESTING ENGINEER NOTES: Pancreas: Limited due to bowel gas. Parts seen appear wnl Liver: Heterogeneous , no dilated ducts, cystic structures or masses. Gallbladder: wnl Evidence for sonographic Deal's sign: No CBD: wnl Spleen: wnl Right Kidney: wnl Left Kidney: wnl Upper IVC: wnl Abd Aorta: wnl The liver is heterogenous. The intrahepatic portion of the IVC and proximal abdominal aorta are with in normal limits. There is no evidence of cholelithiasis. Common bile duct is unremarkable. The vi sualized portions of the pancreas are homogenous. The spleen is unremarkable. Kidneys are symmetric and free of hydronephrosis. No renal lesions are seen. IMPRESSION: 1. No evidence for acute process. 2. Heterogenous liver parenchyma echotexture correlate serum markers
== END | disposition home or self-care (01) ==
LOC: RADUSWWP 08:37
PROVIDERS: ATTEND Family Medicine
DX: K76.89 Other specified diseases of liver (principal); R11.0 Nausea; R19.7 Diarrhea, unspecified
CPT/HCPCS: 76700

== ENCOUNTER 2024-03-29 17:28 | Emergency (ER) | payer BC, OTHER ==
[2024-03-29 17:51] VITALS: TEMP 98.4
--- NOTE | 2024-03-29 20:39 | ED ---
Skin/Abscess/FB HPI - General Chief complaint: Skin/Abscess/Foreign Body Stated complaint: Leg Skin Abscess Time Seen by Provider: 03/29/24 17:41 Source: patient, family, RN notes reviewed Mode of arrival: ambulatory Limitations: no limitations - History of Present Illness Initial comments: This is a 28-year-old female with no significant past medical history presenting to the emergency room with mother for chief complaint of a abscess/infection to her left mid thigh. Patient states that she went to urgent care and 03/25/2024 where she was prescribed Keflex with concern for cellulitis with abscess and scheduled a follow-up appointment for 04/08/2024 where the provider was planning to do an incision and drainage. Patient states that over the past 2 days she has had worsening erythema and pain surrounding the area. She denies fevers, chills, nausea, vomiting. She states she has been taking the antibiotic as prescribed. - Related Data Home Medications Medication Instructions Recorded Confirmed Multivitamins, Thera [Multivitamin 1 tab PO DAILY 02/15/23 02/20/23 (formulary)] Previous Rx's Medication Instructions Recorded oxyCODONE HCL [OxyIR] 5 mg PO Q6H PRN 3 Days #6 tab 02/20/23 HYDROcodone/APAP 5-325MG [[place] 1 tab PO Q6HR PRN 3 Days #12 tab 03/11/23 5-325] Ketorolac [Toradol] 10 mg PO Q6HR PRN #15 tab 03/11/23 Sulfamethox-Tmp 800-160Mg [Bactrim 1 each PO Q12HR #20 tab 03/29/24 Ds] Allergies Allergy/AdvReac Type Severity Reaction Status Date / Time shellfish derived [Shellfish] Allergy Wheezing Verified 03/29/24 17:48 Review of Systems ROS Statement: Those systems with pertinent positive or pertinent negative responses have been documented in the HPI. ROS Other: All systems not noted in ROS Statement are negative. Past Medical History Past Medical History: No Reported History History of Any Multi-Drug Resistant Organisms: None Reported Past Surgical History: No Surgical Hx Reported Past Anesthesia/Blood Transfusion Reactions: No Reported Reaction Additional Past Anesthesia/Blood Transfusion Reaction / Comment(s): Has never had anesthesia. Past Psychological History: No Psychological Hx Reported Smoking Status: Never smoker Past Alcohol Use History: None Reported Past Drug Use History: None Reported - Past Family History Mother Family Medical History: No Reported History General Exam Limitations: no limitations General appearance: alert, in no apparent distress Eye exam: Present: normal appearance, PERRL, EOMI. Absent: scleral icterus, conjunctival injection, periorbital swelling Neck exam: Present: normal inspection. Absent: tenderness, meningismus, lymphadenopathy Respiratory exam: Present: normal lung sounds bilaterally. Absent: respiratory distress, wheezes, rales, rhonchi, stridor Cardiovascular Exam: Present: regular rate, normal rhythm, normal heart sounds. Absent: systolic murmur, diastolic murmur, rubs, gallop, clicks GI/Abdominal exam: Present: soft, normal bowel sounds. Absent: distended, tenderness, guarding, rebound, rigid Left Upper Leg exam: Present: tenderness, erythema (mid thigh with fluctuance and area of mild serous drainage) Gait: observed and normal Back exam: Present: normal inspection Neurological exam: Present: alert, oriented X3, CN II-XII intact Skin exam: Present: warm, dry, intact, normal color. Absent: rash Course Vital Signs 03/29/24 03/29/24 17:48 21:30 Temperature 98.4 F Pulse Rate 97 108 H Respiratory 18 20 Rate Blood Pressure 107/77 121/77 O2 Sat by Pulse 98 95 Oximetry Procedures - Incision & Drainage Consent Obtained: verbal consent Site: lower extremity (left thigh) Anesthetic Used: lidocaine 1% I&D Cleaning Method: Chloroprep Scalpel Used: #11 Needle Aspiration Performed?: Yes I&D Drainage Obtained: Pus, Blood, Serous Insertion of drain: No Culture Obtained?: No Patient Tolerated Procedure: well, no complications Medical Decision Making - Medical Decision Making Was pt. sent in by a medical professional or institution (, PA, PRACTICE SPECIALIST, urgent care, hospital, or alf...) When possible be specific @ -No Did you speak to anyone other than the patient for history (EMS, parent, family, police, friend...)? What history was obtained from this source @ -No Did you review nursing and triage notes (agree or disagree)? Why? @ -I reviewed and agree with nursing and triage notes Were old charts reviewed (outside hosp., previous admission, EMS record, old EKG, old radiological studies, urgent care reports/EKG's, alf records)? Report findings @ -No old charts were reviewed Differential Diagnosis (chest pain, altered mental status, abdominal pain women, abdominal pain men, vaginal bleeding, weakness, fever, dyspnea, syncope, headache, dizziness, GI bleed, back pain, seizure, CVA, palpatations, mental health, musculoskeletal)? @ -Cellulitis, abscess, folliculitis, this list is not all inclusive EKG interpreted by me (3pts min.). @ -None X-rays interpreted by me (1pt min.). @ -None done CT interpreted by me (1pt min.). @ -None done U/S interpreted by me (1pt. min.). @ -None done What testing was considered but not performed or refused? (CT, X-rays, U/S, labs)? Why? @ -None What meds were considered but not given or refused? Why? @ -None Did you discuss the management of the patient with other professionals (professionals i.e. , PA, PRACTICE SPECIALIST, lab, RT, psych nurse, licensed social worker, portfolio specialist, teacher, international first officer, trimming caser)? Give summary @ -No Was smoking cessation discussed for >3mins.? @ -No Was critical care preformed (if so, how long)? @ -No Were there social determinants of health that impacted care today? How? (Homelessness, low income, unemployed, alcoholism, drug addiction, transportation, low edu. Level, literacy, decrease access to med. care, prison, rehab)? @ -No Was there de-escalation of care discussed even if they declined (Discuss DNR or withdrawal of care, Hospice)? DNR status @ -No What co-morbidities impacted this encounter? (DM, HTN, Smoking, COPD, CAD, Cancer, CVA, ARF, Chemo, Hep., AIDS, mental health diagnosis, sleep apnea, morbid obesity)? @ -None Was patient admitted / discharged? Hospital course, mention meds given and route, prescriptions, significant lab abnormalities, going to OR and other pertinent info. @ -Discharge. 28-year-old female with abscess to the left thigh. On evaluation patient noted to have erythema surrounding area of fluctuance with center of mild serous drainage. Area was thoroughly cleansed with ChloraPrep and anesthetized with lidocaine. Incision and drainage performed with purulent material drained. Patient sent a prescription for Bactrim instructed to continue Keflex as directed and continue warm compresses. Discussed with Dr. Herrera Undiagnosed new problem with uncertain prognosis? @ -No Drug Therapy requiring intensive monitoring for toxicity (Heparin, Nitro, Insulin, Cardizem)? @ -No Were any procedures done? @ -Abscess incision and drainage Diagnosis/symptom? @ -abscess with cellulitis Acute, or Chronic, or Acute on Chronic? @ -acute Uncomplicated (without systemic symptoms) or Complicated (systemic symptoms)? @ -uncomplicated Side effects of treatment? @ -No Exacerbation, Progression, or Severe Exacerbation? @ -No Poses a threat to life or bodily function? How? (Chest pain, [place], [place], pneumonia, PE, COPD, DKA, ARF, appy, cholecystitis, CVA, Diverticulitis, Homicidal, Suicidal, threat to staff... and all critical care pts) @ -No Disposition Clinical Impression: Cellulitis and abscess of leg Disposition: HOME SELF-CARE Condition: Good Instructions (If sedation given, give patient instructions): Abscess Incision and Drainage (ED) Additional Instructions: Please return to the Emergency Department if symptoms worsen or any other concerns. Continue Keflex as prescribed and take Bactrim as directed. Use of warm compresses at least 4 times per day for 20 minutes. Take Tylenol and Motrin as needed for pain. Prescriptions: Sulfamethox-Tmp 800-160Mg [Bactrim Ds] 1 each PO Q12HR #20 tab Is patient prescribed a controlled substance at d/c from ED?: No Referrals: Eduardo Allan MD [Primary Care Provider] - 1-2 days Time of Disposition: 21:11
[2024-03-29] MEDS: LIDOCAINE 1% INJ 10MG/ML (20 ML MDV) SQ ONE (20:44)
[2024-03-29 21:32] VITALS: BP 121/77; PULSE 108; RESP 20
== END 2024-03-29 22:46 | disposition home or self-care (01) ==
LOC: EC 17:28
DX: L03.116 Cellulitis of left lower limb (principal); Z91.013 Allergy to seafood
CPT/HCPCS: 99283; 10060; J2003